=== PATIENT | male | born 1960 | race Caucasian/White ===

== ENCOUNTER 2017-12-04 13:20 | Emergency (ER) | payer OTHER ==
--- NOTE | 2017-12-04 14:55 | RAD REPORT ---
EXAM DESCRIPTION: CT - Stone Protocol - 12/04/2017 2:43 pm CLINICAL HISTORY: Flank pain. COMPARISON: None. TECHNIQUE: Axial images were obtained without oral or IV contrast. Lack of contrast limits solid org an and vascular assessment. The [id number] spans the entirety of the system partially obscuring uppermost abdomen and lung bases. Coronal reformatted images were obtained and reviewed. All CT scans are performed using dose optimization technique as appropriate and may include automated exposure control or mA/KV adjustment according to patient size. FINDINGS: The lower lung mckee are clear. Imaged portions of the liver and spleen show no suspicious findings on non-contrast imaging. The panc reas and adrenal glands are normal. No pathologic lymphadenopathy in the abdomen or pelvis. 5 mm stone is present at the right UVJ (880 HU). No significant hydronephrosis. Additional 1-2 mm jus culi are present in the kidneys bilaterally, greater on the right. No bowel obstruction, free air, free fluid or abscess. Normal appendix noted. No significant bony abnormality. IMPRESSION: 5 mm stone (880 HU) at the right UVJ is present. No significant hydronephrosis seen. Additional bilateral nephrolithiasis is present.
--- NOTE | 2017-12-04 15:17 | EDPHYS ---
Physician Documentation [facility] Name: Aditya Stephenson Age: 57 yrs Sex: Male : 1960 Arrival Date: 12/04/2017 Time: 13:22 Bed 23 Private MD: ED Physician Seamus Paige HPI: 12/04 15:09 This 57 yrs old Unknown Male presents to ER via Wheelchair with complaints of Back gs Pain, Weakness. 15:09 The patient presents with pain that is acute, and an injury. The symptoms are located gs in the low back. Onset: The symptoms/episode began/occurred yesterday. The pain radiates to the right leg. Associated signs and symptoms: Pertinent negatives: fever, incontinence, urinary retention. The problem was sustained during a fall, while sitting. Modifying factors: The patient symptoms are alleviated by nothing, the patient symptoms are aggravated by any movement. Severity of symptoms: At their worst the symptoms were severe, in the emergency department the symptoms have improved, moderately. The patient has experienced similar episodes in the past, a few times. Historical: - Allergies: 13:32 Codeine; tw2 13:32 PENICILLINS; tw2 - Home Meds: 13:32 Celebrex 200 mg Oral cap 1 cap 2 times per day [Active]; prednisone 10 mg Oral tab once tw2 daily [Active]; humira injections every 2 weeks [Active]; - PMHx: 13:32 Arthritis; tw2 - PSHx: 13:32 left shoulder sx; tw2 - Immunization history:: Adult Immunizations up to date. - Social history:: Smoking status: Patient/guardian denies using tobacco, Patient uses alcohol, on a daily basis. ROS: 15:09 All other systems are negative. gs Exam: 15:09 Head/Face: Normocephalic, atraumatic. Eyes: Pupils equal round and reactive to light, gs extra-ocular motions intact. Lids and lashes normal. Conjunctiva and sclera are non-icteric and not injected. Cornea within normal limits. Periorbital areas with no swelling, redness, or edema. ENT: Nares patent. No nasal discharge, no septal abnormalities noted. Tympanic membranes are normal and external auditory canals are clear. Oropharynx with no redness, swelling, or masses, exudates, or evidence of obstruction, uvula midline. Mucous membranes moist. Neck: Trachea midline, no thyromegaly or masses palpated, and no cervical lymphadenopathy. Supple, full range of motion without nuchal rigidity, or vertebral point tenderness. No Meningismus. Chest/axilla: Normal chest wall appearance and motion. Nontender with no deformity. No lesions are appreciated. Cardiovascular: Regular rate and rhythm with a normal S1 and S2. No gallops, murmurs, or rubs. Normal PMI, no JVD. No pulse deficits. Respiratory: Lungs have equal breath sounds bilaterally, clear to auscultation and percussion. No rales, rhonchi or wheezes noted. No increased work of breathing, no retractions or nasal flaring. Abdomen/GI: Soft, non-tender, with normal bowel sounds. No distension or tympany. No guarding or rebound. No evidence of tenderness throughout. Back: No spinal tenderness. No costovertebral tenderness. Full range of motion. Skin: Warm, dry with normal turgor. Normal color with no rashes, no lesions, and no evidence of cellulitis. MS/ Extremity: Pulses equal, no cyanosis. Neurovascular intact. Full, normal range of motion. Neuro: Awake and alert, GCS 15, oriented to person, place, time, and situation. Cranial nerves II-XII grossly intact. Motor strength 5/5 in all extremities. Sensory grossly intact. Cerebellar exam normal. Normal gait. 15:09 Constitutional: The patient appears alert, awake. 15:09 Neuro: Sensation: no obvious gross deficits, pin prick testing is normal, Deep tendon reflexes are 2+ (normal) in the right patellar, right Achilles, left patellar and left Achilles. Vital Signs: 13:29 BP 160 / 84; Pulse 63; Resp 18; Temp 97.8(O); Pulse Ox 100% on R/A; Weight 81.65 kg tw2 (R); Height 6 ft. 1 in. (185.42 cm); Pain 5/10; 13:29 Body Mass Index 23.75 (81.65 kg, 185.42 cm) tw2 MDM: 14:23 Patient medically screened. gs 15:09 Differential diagnosis: chronic back pain, ruptured disc, spinal injury, sprain. Data gs reviewed: vital signs, nurses notes. Response to treatment: the patient's symptoms have markedly improved after treatment, and as a result, I will discharge patient. 15:15 Differential diagnosis: Ureterolithiasis. 12/04 14:22 Order name: Urinalysis 12/04 15:05 Order name: Urine Dipstick--Ancillary (enter results) mw2 12/04 14:22 Order name: CT Stone Protocol; Complete Time: 15:14 12/04 14:47 Order name: Urine Dipstick-Ancillary (obtain specimen); Complete Time: 15:12 12/04 15:05 Order name: Urine Dipstick-Ancillary EDMS Administered Medications: No medications were administered Disposition: 12/04/17 15:15 Discharged to Home. Impression: Calculus of ureter. - Condition is Stable. - Discharge Instructions: Kidney Stones, Ureteral Colic. - Prescriptions for Tramadol 50 mg Oral Tablet - take 1 tablet by ORAL route every 8 hours as needed; 12 tablet. - Medication Reconciliation Form, Thank You Letter, Antibiotic Education, Prescription Opioid Use form. - Follow up: Private Physician; When: 2 - 3 days; Reason: Re-evaluation by your physician. Follow up: Devendra Moran MD; When: 2 - 3 days; Reason: Re-evaluation by your physician. Signatures: Dispatcher [employer] EDMS Linda Mcdaniels, MARK FLORES Raine Smith RN RN tw2 Seamus Paige MD MD
--- NOTE | 2017-12-04 15:17 | ER ---
Nurse's Notes [facility] Name: Aditya Stephenson Age: 57 yrs Sex: Male : 1960 Arrival Date: 12/04/2017 Time: 13:22 Bed 23 [facility] MD: Diagnosis: Calculus of ureter Presentation: 12/04 13:28 Presenting complaint: Patient states: "i fell last night, onto metal weights onto the tw2 floor, i felt sore after that, but today its gotten worse, right side kidney area", "my fingers are getting numb too". Presenting complaint:. Transition of care: patient was not received from another setting of care. Onset of symptoms was December 04, 2017. Initial Sepsis Screen: Does the patient meet any 2 criteria? No. Patient's initial sepsis screen is negative. Does the patient have a suspected source of infection? No. Patient's initial sepsis screen is negative. Care prior to arrival: None. 13:28 Method Of Arrival: Wheelchair tw2 13:28 Acuity: ALFRED 3 tw2 Historical: - Allergies: 13:32 Codeine; tw2 13:32 PENICILLINS; tw2 - Home Meds: 13:32 Celebrex 200 mg Oral cap 1 cap 2 times per day [Active]; prednisone 10 mg Oral tab once tw2 daily [Active]; humira injections every 2 weeks [Active]; - PMHx: 13:32 Arthritis; tw2 - PSHx: 13:32 left shoulder sx; tw2 - Immunization history:: Adult Immunizations up to date. - Social history:: Smoking status: Patient/guardian denies using tobacco, Patient uses alcohol, on a daily basis. Screenin:58 Abuse screen: Denies threats or abuse. Denies injuries from another. Nutritional sv screening: No deficits noted. Tuberculosis screening: No symptoms or risk factors identified. Fall Risk No fall in past 12 months (0 pts). No secondary diagnosis (0 pts). No IV (0 pts). Ambulatory Aid- None/Bed Rest/Nurse Assist (0 pts). Gait- Normal/Bed Rest/Wheelchair (0 pts) Mental Status- Oriented to own ability (0 pts). Total White Fall Scale indicates No Risk (0-24 pts). Assessment: 14:01 General: Appears uncomfortable, slender, well groomed, well developed, Behavior is sv calm, cooperative, appropriate for age. Pain: Complains of pain in lumbar area and right low back Pain currently is 5 out of 10 on a pain scale. Is continuous. Neuro: Level of Consciousness is awake, alert, obeys commands, Oriented to person, place, time, situation, Moves all extremities. Full function Gait is steady, Speech is normal. Cardiovascular: Patient's skin is warm and dry. Respiratory: Respiratory effort is even, unlabored, Respiratory pattern is regular, symmetrical. Derm: Skin is pink, warm \\T\\ dry. Musculoskeletal: Range of motion: intact in all extremities. 15:35 Reassessment: Patient appears in no apparent distress at this time. No changes from sv previously documented assessment. Patient and/or family updated on plan of care and expected duration. Pain level reassessed. Patient is alert, oriented x 3, equal unlabored respirations, skin warm/dry/pink. Vital Signs: 13:29 BP 160 / 84; Pulse 63; Resp 18; Temp 97.8(O); Pulse Ox 100% on R/A; Weight 81.65 kg tw2 (R); Height 6 ft. 1 in. (185.42 cm); Pain 5/10; 13:29 Body Mass Index 23.75 (81.65 kg, 185.42 cm) tw2 ED Course: 13:22 Patient arrived in ED. tw3 13:29 Triage completed. tw2 13:30 Arm band placed on. tw2 13:48 Seamus Paige MD is Attending Physician. gs 13:48 Linda Mcdaniels, MARK is Primary Nurse. sv 13:58 Patient has correct armband on for positive identification. Placed in gown. Bed in low sv position. Adult w/ patient. Door closed. Warm blanket given. Head of bed elevated. 14:45 CT Stone Protocol In Process Unspecified. EDMS 14:[address] back from [address]. sv 15:12 Urine Dipstick--Ancillary (enter results) Sent. sv 15:15 Devendra Moran MD is Referral Physician. gs 15:35 No provider procedures requiring assistance completed. Patient did not have IV access sv during this emergency room visit. Administered Medications: No medications were administered Outcome: 15:15 Discharge ordered by . gs 15:35 Discharged to home ambulatory, with family. sv 15:35 Condition: stable 15:35 Discharge instructions given to patient, family, Instructed on discharge instructions, follow up and referral plans. no drinking with medication, no driving heavy equipment, medication usage, increase fluid intake Demonstrated understanding of instructions, follow-up care, medications, Prescriptions given X 1. 15:36 Patient left the ED. sv Signatures: Dispatcher [employer] Linda West RN RN sv Wise, Tara, RN RN tw2 Virginia Hayes tw3 Seamus Paige MD MD
[2017-12-04 15:41] LABS: Urine Appearance CLEAR; Urine Bilirubin NEGATIVE (NEG); Urine Blood 2+ (NEG); Urine Color YELLOW; Urine Glucose NEGATIVE (NEG); Urine Protein NEGATIVE (NEG); Urine Specific Gravity >=1.030 (1.005-1.030); Urine Urobilinogen 0.2 mg/dL (0.2-1.0)
[2017-12-04 15:42] LABS: Urine Blood 2+ (NEG); Urine Glucose NEGATIVE (NEG); Urine Protein TRACE (NEG)
[2017-12-04 15:43] LABS: Urine Microscopic Reflex ORDER UMIC
[2017-12-04 16:29] LABS: Urine Bacteria <20 /HPF (NONE SEEN); Urine Culture Reflex Order NOT NEEDED; Urine RBC 20-50 /HPF (NONE SEEN)
== END 2017-12-04 15:36 | disposition home or self-care (01) ==
LOC: ER 13:20
DX: N20.1 Calculus of ureter (principal); Z88.0 Allergy status to penicillin; Z88.5 Allergy status to narcotic agent
CPT/HCPCS: 74176; 76377; 81003; 81015; 99284